=== PATIENT | male | born 1960 | race Two or more races ===

== ENCOUNTER → 2022-03-16 13:53 | Outpatient (BNVA) | payer OTHER, SELFPAY | PROVIDERS: Visit Provider Nurse Practitioner Family | DX: G21.2 Secondary parkinsonism due to other external agents (principal) | CPT/HCPCS: 99212 ==

== ENCOUNTER 2023-03-19 14:05 | Outpatient (AMB) | payer MEDICAID, SELFPAY ==
--- NOTE | 2023-03-19 14:22 | A.OFFVIS_ITS ---
Intake Vital Signs 03/19/23 14:23 Height 5 ft 7 in Weight 187 lb 6 oz BMI 29.3 BP 132/75 Blood Pressure Location Rt brachial Position Sitting Respiration 16 Pulse 97 Pulse Source Pulse Oximeter Pulse Oximetry (%) 98 Oxygen Delivery Method Room Air Intake Visit Reasons: 1 yr follow-up - Confirmed Intake Note: Pt is here for one year follow up for Parkinson's disease. Pt is here with the dry cleaning supervisor of his residential home, Faye Neff who is also his historian. She reports he has been stable. There has been no change. 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 Pt reports he is doing well with benzotropine 0.5 mg BID. He still has moderate oral, sucking movement but it is not botersom. Pt is edentulous, and not using denture. Denies difficulty swallowing food or chocking. Satya drooling or biting tongue He uses cane, No falls reported. Denies light headedness or hallucination. He sleeps well from 8 pm to 7 am. Pt's psychiatrist discontinue hydroxyzine, desmorpressin and buspirone and melatonin, and his behavior and mood is stable. [facility] Medical History (Updated 03/20/22 @ 15:30 by Ayleen Yadav CNP) Diabetes mellitus Sleep disorder Hypothyroidism Anxiety Schizophrenia Paranoid Surgical History S/P nasal surgery Family History Sister Heart attack Social History Alcohol intake: never Patient Tobacco Use Status: Never used Tobacco Review of Systems Const All systems reviewed & are unremarkable except as noted in HPI and below ENT Reports Normal hearing present Neuro Reports Normal hearing present Physical Exam Vital Signs: Last Vital Signs Pulse 97 03/19/23 14:23 Resp 16 03/19/23 14:23 BP 132/75 03/19/23 14:23 Pulse Ox 98 03/19/23 14:23 Oxygen Delivery Method Room Air 03/19/23 14:23 BMI result Body Mass Index 29.3 Const General: cooperative and no acute distress Nutritional Appearance: average body habitus Orientation/consciousness: patient oriented x3 Limitations: ambulation with cane Neck Neck: Yes full ROM and Yes supple Resp Effort & Inspection: normal respiratory effort and able to speak in complete sentences Neuro Other: Mild decreased facial expression and blink. Mild constant oral sucking movment. General: patient oriented x3 and moves all extremities Cranial nerves: Yes Bilaterally intact EOM present, Yes Normal facial strength present, Yes Midline tongue present, Yes Symmetric palate elevation present, Yes Normal hearing present, Yes Ability to bilaterally rotate head present and Yes Ability to bilaterally elevate shoulders present Cognition (Neuro): normal cognition Gait exam (Neuro): Other gait observations present (mild stooped , good stride and decreased bilteral arm swing. 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
[2023-03-19 14:23] VITALS: BP 132/75; PULSE 97; RESP 16; O2SAT 98; BMI 29.3
== END 2023-03-19 14:45 | disposition home or self-care (01) ==
PROVIDERS: Visit Provider Nurse Practitioner Family
DX: G21.2 Secondary parkinsonism due to other external agents (principal)
CPT/HCPCS: 99213

== ENCOUNTER → 2023-03-19 14:05 | Outpatient (BNVA) | payer OTHER, SELFPAY | PROVIDERS: Visit Provider Nurse Practitioner Family | DX: G21.2 Secondary parkinsonism due to other external agents (principal) | CPT/HCPCS: 99212 ==

== ENCOUNTER 2024-10-13 11:34 | Outpatient (AMB) | payer MEDICAID, SELFPAY ==
--- NOTE | 2024-10-13 11:49 | A.OFFVIS_ITS ---
Vital Signs 10/13/24 11:50 Height 5 ft 7 in Weight 196 lb BMI 30.7 BP 124/78 Blood Pressure Location Rt brachial Pulse 91 Pulse Source Pulse Oximeter Pulse Oximetry (%) 98 Oxygen Delivery Method Room Air Intake Visit Reasons: 1 yr f/u appt-Conf Intake Note: Patient presents for following up. patient was last seen 2022 by Sadie Allergies hydroxyzine [From Vistaril] Allergy (Unknown, Verified 10/13/24 11:49) Unknown [facility] Medical History Diabetes mellitus Sleep disorder Hypothyroidism Anxiety Schizophrenia Paranoid Surgical History S/P nasal surgery Family History Sister Heart attack Social History (Reviewed 03/19/23 @ 14:33 by Otilia Bundy [facility]) Alcohol intake: never Patient Tobacco Use Status: Never used Tobacco Coding
[2024-10-13 11:50] VITALS: BP 124/78; PULSE 91; O2SAT 98; BMI 30.7
--- NOTE | 2024-10-13 11:58 | A.OFFVIS_ITS ---
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 It is not clear if patient is still on benztropine- received a note saying that it was stopped by psych provider. He still has moderate oral, sucking movement but it is not bothersome. Pt is edentulous, and not using denture. Denies difficulty swallowing food or chocking. Satya drooling or biting tongue He uses cane, No falls reported. Denies light headedness or hallucination. He sleeps well from 8 pm to 7 am. Pt's psychiatrist discontinue hydroxyzine, desmorpressin and buspirone and melatonin, and his behavior and mood is stable. [facility] Medical History Diabetes mellitus Sleep disorder Hypothyroidism Anxiety Schizophrenia Paranoid Surgical History S/P nasal surgery Family History Sister Heart attack Social History Alcohol intake: never Patient Tobacco Use Status: Never used Tobacco Review of Systems ENT Reports Normal hearing present Neuro Reports Normal hearing present Physical Exam Vital Signs: Last Vital Signs Pulse 91 10/13/24 11:50 BP 124/78 10/13/24 11:50 Pulse Ox 98 10/13/24 11:50 Oxygen Delivery Method Room Air 10/13/24 11:50 BMI result Body Mass Index 30.7 Const General: cooperative and no acute distress Nutritional Appearance: average body habitus Orientation/consciousness: patient oriented x3 Limitations: ambulation with cane Neck Neck: Yes full ROM and Yes supple Resp Effort & Inspection: normal respiratory effort and able to speak in complete sentences Neuro Other: Mild decreased facial expression and blink. Mild constant oral sucking movment. General: patient oriented x3 and moves all extremities Cranial nerves: Yes Bilaterally intact EOM present, Yes Normal facial strength present, Yes Midline tongue present, Yes Symmetric palate elevation present, Yes Normal hearing present, Yes Ability to bilaterally rotate head present and Yes Ability to bilaterally elevate shoulders present Cognition (Neuro): normal cognition Gait exam (Neuro): Other gait observations present (mild stooped , good stride and decreased bilteral arm swing. 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 I will call [facility] to confirm that he is still on Benztropine. 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
--- OUTSIDE RECORDS SUMMARY | 2024-10-13 12:23 | XMS_ITS | Patient Health Record ---
Author Organization [facility] Micki adamson [place] Address [address] [place] [address] Care Team Providers Care Print Journalist Name Role Phone Hal Desir Unavailable [phone] Reason For Referral No Information Medications Medication SIG (Take, Route, Frequency, Duration) Notes Start Date End Date Status Multivitamin Active Capsaicin cream Active Benztropine Mesylate 0.5 MG 1 tablet Orally twice a day Active Mirtazapine 30 MG 1 tablet at bedtime Orally Once a day Active Levothyroxine Sodium 75 MCG 1 tablet in the morning on an empty stomach Orally Once a day Active Melatonin Active Atorvastatin Calcium 40 MG 1 tablet Orally Once a day Active traZODone HCl 50 MG 1 tablet at bedtime as needed Orally Once a day Active clonazePAM 1.5mg twice a day Active metFORMIN HCl 500 MG 1 tablet with a ming l Orally twice a day Active Losartan Potassium 25 MG 1 tablet Orally Once a day Active Social History Tobacco Use: Social History [...] Negative Encounters Encounter Location Date Provider Diagnosis [facility] [address] [place] [address] 03/20/2024 Hal Desir [facility] [address] [place] [address] 07/07/2024 Hal Thang Plan Of Treatment No Information Insurance Providers Payer Name Payer Address Payer Phone Subscriber Number Group Number Insured Name Patient Relationship to Insured Coverage Start Date Coverage End Date [facility] [address] [place] [phone] [id number] Favian Gorman Self - patient is the insured Medical (General) History Medical History History ICD Code Anxiety Depression Diabetic High Blood Pressure Parkinsons disease Psychiatric disorder
--- OUTSIDE RECORDS SUMMARY | 2024-10-13 12:23 | XMS_ITS | Clinical Summary ---
Author Organization [address] Address [address] [place] [address] Phone Care Team Providers Care Toy Parts Former Supervisor Name Role Phone Physician, Pcp Unknown Primary Care Provider Rosa Maria vailable Social History Tobacco Use Types Packs/Day Years Used Date Smoking Tobacco: Never Assessed Sex and Gender Information Value Date Recorded Sex Assigned at Not on file Legal Sex Male 12:24 AM EST Gender Identity Not on file Sexual Orientation Not on file Plan of Treatment Health Maintenance Due Date Last Done Comments Diabetes: Annual GFR (Glomerular Filtration Rate) 1960 Diabetes: Annual Foot Exam 08/30/1971 Diabetes: Annual Retina Eye Exam 08/30/1971 Zoster Vaccines (1 of 2) 08/30/2011 Pneumococcal Vaccine: 50+ Years (2 of 2 - PCV) 09/24/2019 09/23/2018 Cholesterol Screening (Lipid Panel) 05/07/2022 Colorectal Cancer Screening: Colonoscopy 05/07/2022 Depression Screening 05/07/2022 HIV Screening 05/07/2022 Hepatitis C Screening 05/07/2022 Social Influencers of Health Screening 05/07/2022 COVID-19 Vaccine ( season) 2024 06/22/2022, 04/01/2021, 08/02/2020, Additional history exists Diabetes: Annual Urine Albumin-Creatinine Ratio (uACR) 04/14/2024 Diabetes: Blood Sugar Control Test (HGBA1C) 04/14/2024 Influenza Vaccine (Season Ended) 2025 09/22/2021, 03/19/2018, 03/01/2017, Additional history exists DTaP,Tdap,and Td Vaccines (4 - Td or Tdap) 01/12/2031 01/12/2021, 10/25/2017, 08/30/2011 RSV Immunization Adult Patients (1 - 1-dose 75+ series) 2036 Pneumococcal Vaccine: Pediatrics (0 to 5 Years) and At-Risk Patients (6 to 64 Years) Aged Out 09/23/2018 No longer eligible based on patient's age to complete this topic HIB Vaccines Aged Out No longer eligi ble based on patient's age to complete this topic HPV Vaccines Aged Out No longer eligi ble based on patient's age to complete this topic Hepatitis A Vaccines Aged Out No long er eligible based on patient's age to complete this topic Hepatitis B Vaccines Aged Out No long er eligible based on patient's age to complete this topic IPV Vaccines Aged Out No longer eligi ble based on patient's age to complete this topic MMR Vaccines Aged Out No longer eligi ble based on patient's age to complete this topic Meningococcal ACWY Vaccine Aged Out N o longer eligible based on patient's age to complete this topic Meningococcal B Vaccine Aged Out No l onger eligible based on patient's age to complete this topic RSV Immunization Patients Under 20 months Aged Out No longer eligible based on patient's age to complete this topic Varicella Vaccines Aged Out No longer eligible based on patient's age to complete this topic Procedures Procedure Name Priority Date/Time Associated Diagnosis Comments CBC WITH AUTO DIFFERENTIAL Routine 09/19/2024 10:36 AM EDT Drug therapy CBC AND DIFFERENTIAL Routine 09/19/2024 10:36 AM EDT Drug therapy CBC WITH AUTO DIFFERENTIAL Routine 08/19/2024 10:40 AM EDT Drug therapy CBC AND DIFFERENTIAL Routine 08/19/2024 10:40 AM EDT Drug therapy from Last 3 Months Results * (ABNORMAL) CBC auto differential (09/19/2024 10:36 AM EDT) Only the most recent of2 resultswithin the time period is included. WBC 8.2 4.8 - 10.8 K/[facility] LAB HEMETOLOGY METHOD 09/19/2024 1:51 PM EDT [facility] RBC 4.90 4.50 - 5.50 M/[facility] LAB HEMETOLOGY METHOD 09/19/2024 1:51 PM [facility] Hemoglobin 14.0 13.5 - 17.5 g/dL LAB HEMETOLOGY METHOD 09/19/2024 1:51 PM [facility] Hematocrit 43.7 42.0 - 54.0 % LAB HEMETOLOGY METHOD 09/19/2024 1:51 PM [facility] MCV 89.0 79.0 - 98.0 FL LAB HEMETOLOGY METHOD 09/19/2024 1:51 PM [facility] MCH 28.5 27.0 - 32.0 pcg LAB HEMETOLOGY METHOD 09/19/2024 1:51 PM [facility] MCHC 32.0 32.0 - 37.0 g/dL LAB HEMETOLOGY METHOD 09/19/2024 1:51 PM [facility] RDW 13.5 11.0 - 15.0 % LAB HEMETOLOGY METHOD 09/19/2024 1:51 PM [facility] Platelets 191 130 - 400 K/mcL LAB HEMETOLOGY METHOD 09/19/2024 1:51 PM [facility] MPV 12.3(H) 7.0 - 11.0 FL LAB HEMETOLOGY METHOD 09/19/2024 1:51 PM [facility] NRBC 0.0 <1.0 % LAB HEMETOLOGY METHOD 09/19/2024 1:51 PM [facility] NRBC Absolute 0.00 <0.10 K/mcL LAB HEMETOLOGY METHOD 09/19/2024 1:51 PM [facility] Neutrophils Relative 55.6 % LAB HEMETOLOGY METHOD 09/19/2024 1:51 PM [facility] Lymphocytes Relative 33.4 % LAB HEMETOLOGY METHOD 09/19/2024 1:51 PM [facility] Monocytes Relative 7.6 % LAB HEMETOLOGY METHOD 09/19/2024 1:51 PM EDT [facility] Eosinophils Relative 2.1 % LAB HEMETOLOGY METHOD 09/19/2024 1:51 PM EDT [facility] Basophils Relative 0.7 % LAB HEMETOLOGY METHOD 09/19/2024 1:51 PM EDT [facility] Immature Granulocytes Relative 0.6 % LAB HEMETOLOGY METHOD 09/19/2024 1:51 PM EDT [facility] Neutrophils Absolute 4.56 1.50 - 7.00 K/mcL LAB HEMETOLOGY METHOD 09/19/2024 1:51 PM EDT [facility] Lymphocytes Absolute 2.74 1.00 - 5.00 K/mcL LAB HEMETOLOGY METHOD 09/19/2024 1:51 PM EDT [facility] Monocytes Absolute 0.62 0.20 - 1.00 K/mcL LAB HEMETOLOGY METHOD 09/19/2024 1:51 PM EDT [facility] Eosinophils Absolute 0.17 0.00 - 0.50 K/mcL LAB HEMETOLOGY METHOD 09/19/2024 1:51 PM EDT [facility] Basophils Absolute 0.06 0.00 - 0.20 K/mcL LAB HEMETOLOGY METHOD 09/19/2024 1:51 PM EDT [facility] Immature Granulocytes Absolute 0.05(H) 0.00 - 0.03 K/mcL LAB HEMETOLOGY METHOD 09/19/2024 1:51 PM EDT [facility] Blood Venous blood specimen / Unknown Venipuncture / Unknown 09/19/2024 10:36 AM EDT 09/19/2024 1:42 PM EDT us Manpreet Darling CYTOGENETICIST LAB BLOOD ORDERABLES Final Result [facility] [address] [place] [address], from Last 3 Months Insurance [facility] MEDICAID ADVANTAGE Advance Directives Documents on File Type Date Recorded 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 Health Care Decision (hx) 12/18/2021 AD CERON DIRECTIVE Health Care Decision (hx) 12/18/2021 AD CERON DIRECTIVE Health Care Decision (hx) 12/18/2021 AD CERON DIRECTIVE Health Care Decision (hx) 12/18/2021 AD CERON DIRECTIVE Health Care Decision (hx) 12/18/2021 AD CERON DIRECTIVE Health Care Decision (hx) 12/18/2021 AD CERON DIRECTIVE Health Care Decision (hx) 12/18/2021 AD CERON DIRECTIVE Health Care Decision (hx) 12/18/2021 AD CERON DIRECTIVE Health Care Decision (hx) 12/18/2021 AD CERON DIRECTIVE Health Care Decision (hx) 12/18/2021 AD CERON DIRECTIVE Health Care Decision (hx) 12/18/2021 AD CERON DIRECTIVE Health Care Decision (hx) 12/18/2021 AD CERON DIRECTIVE Health Care Decision (hx) 12/18/2021 AD CERON DIRECTIVE Health Care Decision (hx) 12/18/2021 AD CERON DIRECTIVE Health Care Decision (hx) 12/18/2021 AD CERON DIRECTIVE Health Care Decision (hx) 12/18/2021 AD CERON DIRECTIVE Health Care Decision (hx) 08/17/2016 AD CERON DIRECTIVE Health Care Decision (hx) 08/17/2016 AD CERON DIRECTIVE Health Care Decision (hx) 08/17/2016 AD CERON DIRECTIVE Health Care Decision (hx) 08/17/2016 AD CERON DIRECTIVE Health Care Decision (hx) 08/17/2016 AD CERON DIRECTIVE Health Care Decision (hx) 08/17/2016 AD CERON DIRECTIVE Health Care Decision (hx) 08/17/2016 AD CERON DIRECTIVE Health Care Decision (hx) 08/17/2016 AD CERON DIRECTIVE Health Care Decision (hx) 08/17/2016 AD CERON DIRECTIVE Health Care Decision (hx) 08/17/2016 AD CERON DIRECTIVE Health Care Decision (hx) 08/17/2016 AD CERON DIRECTIVE Care Teams Toy Parts Former Supervisor Relationship Specialty Start Date End Date Physician, Pcp Unknown PCP - General 04/14/24
--- OUTSIDE RECORDS SUMMARY | 2024-10-13 12:23 | XMS_ITS ---
Author Organization [facility] Micki adamson [place] Address [address] [place] [address] Care Team Providers Care Audiovisual Technician Name Role Phone Hal Desir Unavailable [phone] Medications Medication SIG (Take, Route, Frequency, Duration) [...] Negative Encounters Encounter Location Date Provider Diagnosis [facility] [place] [address] [address] 07/07/2024 Hal Desir Plan Of Treatment No Information Progress Notes * Prabhjot MCGHEEOB:1960 ( 64 yo F)Acc No.[id number]:07/07/2024 Progress Notes Patient:Favian URIARTE Provider:?Hal Desir DPM :1960???Age:63 Y???Sex:Female D ate:07/07/2024 Address:[address] [place] [address] [id number] Subjective: * Chief Complaints: * ??? * ROS:?General/Constitutional:?Nausea?denies.?Vomiting?denies.?Hunger Thirst?denies.?Loss appetite?denies.?Chills?denies.?Fatigue?denies.?Fever?denies.?Night Sweats?denies.?Unexplained weight loss?denies.?Unexplained weight gain?denies.?HEENTM:?Dentures?denies.?Dizziness?denies.?Glasses/contacts?denies.?Retinopathy?de nies.?Blurred/double vision?denies.?TMJ?denies.?Discharge/drainage?denies.?Implants?denies.?Sore throat?denies.?Dental implants?denies.?Hard of hearing ?denies.?Difficulty chewing/swallowing/speaking?denies.?Nose bleeds?denies.?Sore mouth?denies.?Respiratory:?On Oxygen?denies.?Pneumonia/pleurisy?denies.?Bronchitis?denies.?Emphysema?denies.?C oughing?denies.?Cough blood?denies.?Shortness of breath?denies.?Wheezing?denies.?Cardiovascular:?Pacemaker?denies.?MVP?denies.?WPW?denies.?CHF?denies.?Heart attack?denies.?Septal defect?denies.?Rapid beat?denies.?Chest pain ?denies.?Atrial Fib.?denies.?Murmur/Palpitations?denies.?Gastrointestinal:?Hemorrhoids?denies.?Stomach/Abdominal pain?denies.?Dark blood stool?denies.?Irritable bowel ?denies.?Constipation?denies.?Diarrhea?denies.?Hematology:?Swelling?denies.?Clots?denies.?Varicose Veins?denies.?Bruising?denies.?Bleeding problem?denies.?Genitourinary:?Blood urine?denies.?Frequent/Painfu/urination/bladder control?denies.?Kidney stones?denies.?Infection (UTI)?denies.?Nephropathy?denies.?sex trans dis (STD)?denies.?Prostate?denies.?Musculoskeletal:?Hammertoes?denies.?Bunions?denies.?Back Pain?denies.?Muscle Cramps/ Resting?denies.?Muscle cramps / walking?denies.?Generalized aches and pains?denies.?Weakness?denies.?Integ.:?Bynum?denies.?Scars?denies.?Corns/calluses?denies.?Ingrown nails?denies.?Painful nails?denies.?Open Sores?denies.?Rashes?denies.?Neurologic:?Difficulty sleeping?denies.?Brain disorder?denies.?Numbness?denies.?Balance trouble?denies.?Confusion?denies.?Fainting/blackouts?denies.?Tingling?denies.?Tr emors?denies.? * Medical History:?Anxiety, De pression, Diabetic, High Blood Pressure, Parkinsons disease, Psychiatric disorder. * Family History:?Mother: dece ased.?Father: .? * Social History:?Tobacco Use:?Tobacco use other than smoking?Are you an other tobacco user??No ?Tobacco Control (Standard)?Tobacco use:?Nonsmoker ?Additional Findings: Tobacco non-user?Current nonsmoker ???Drugs/Alcohol:?Drugs?Have you used drugs other than those for medical reasons in the past 12 months??No ???Miscellaneous:?Caffeine: yes. ?Marital status: Single. ???Drug/Alcohol:?AUDIT-C (Standard)?Did you have a drink containing alcohol in the past year??No ?Points?0 ?Interpretation?Negative * Medications:?Taking Capsaici n , Notes to Pharmacist: cream, Taking Benztropine [...] a day , Taking Multivitamin Objective: * Vitals:? Assessment: Plan: * Treatment: * Images: * The named appointment provid er may or may not be the originator of this progress note, and it is not deemed complete until electronically signed by the appointment provider. Sign off status: Pending * Provider:?Hal Desir DPM Date:?2024 Generated for Bernardino lynn/Bhavesh/Jr on:?10/13/2024 12:23 PM EDT
--- OUTSIDE RECORDS SUMMARY | 2024-10-13 12:23 | XMS_ITS | Clinical Summary ---
Author Organization [facility] Address [address] [place] [address] Care Team Providers Care Machining And Assembly Supervisor Name Role Phone Unavailable Primary Care Provider Unavailabl e Social History Tobacco Use Types Packs/Day Years Used Date Smoking Tobacco: Never Assessed Sex and Gender Information Value Date Recorded Sex Assigned at Not on file Legal Sex Male 10:47 AM EST Gender Identity Not on file Sexual Orientation Not on file Plan of Treatment Health Maintenance Due Date Last Done Comments Colorectal Cancer Screening: Annual FOBT 2010 Colorectal Cancer Screening: Colonoscopy 2010 Colorectal Cancer Screening: Sigmoidoscopy 2010 Pneumococcal Vaccine: 50+ Ye ars (2 of 2 - PCV) 09/24/2019 09/23/2018 Diabetes: Hemoglobin A1C 06/22/2022 Diabetes: Ophthalmology Exam 06/22/2022 Diabetes: Pedal Pulse Checked 06/22/2022 Diabetes: Sensory Foot Exam 06/22/2022 Diabetes: Visual Foot Exam 06/22/2022 Influenza Vaccine (Season Ended) 2025 Pneumococcal Vaccine: Peds ( 0 to 5 Years) and At-Risk Patients (6 to 49 Years) Discontinued 09/23/2018 Hepatitis B Vaccine Aged Out No longe r eligible based on patient's age to complete this topic [place] [address]
--- OUTSIDE RECORDS SUMMARY | 2024-10-13 12:23 | XMS_ITS ---
Author Organization [facility] Address [address] [place] [address] Care Team Providers Care Maintainer Operator Name Role Phone Hal Desir Unavailable [phone] Encounters Encounter Location Date [facility] [address] [place] [phone] 07/17/2024 Hal eDsir Plan Of Treatment No Information Progress Notes * Prabhjot MCGHEEOB:1960 ( 64 yo F)Acc No.[id number]:07/17/2024 Progress Notes Patient:?Favian MCGHEE Provider:?Hal Desir DPM :1960???Age:63 Y???Sex:Female D ate:07/17/2024 Address:[address] [place], [place] [id number] Subjective: * Chief Complaints: * ??? * Medical History:? Objective: * Vitals:? Assessment: Plan: * Treatment: * Images: * The named appointment provid er may or may not be the originator of this progress note, and it is not deemed complete until electronically signed by the appointment provider. Sign off status: Pending * Provider:Javan Desir DPM Date:?2024 Generated for Bernardino lynn/Bhavesh/eTransmitting on:?10/13/2024 12:23 PM EDT
--- OUTSIDE RECORDS SUMMARY | 2024-10-13 12:23 | XMS_ITS ---
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 Generated for Bernardino lynn/Bhavesh/eTransmitting on:?10/13/2024 12:23 PM EDT
== END 2024-10-13 12:13 | disposition home or self-care (01) ==
LOC: HO.HSMS 11:35
PROVIDERS: Visit Provider Psychiatry & Neurology Neurology
DX: G21.2 Secondary parkinsonism due to other external agents (principal)
CPT/HCPCS: 99214

== ENCOUNTER → 2024-10-13 11:34 | Outpatient (BNVA) | payer OTHER, SELFPAY | PROVIDERS: Visit Provider Psychiatry & Neurology Neurology | DX: G21.2 Secondary parkinsonism due to other external agents (principal) | CPT/HCPCS: 99212 ==

== ENCOUNTER 2025-04-16 12:52 | Outpatient (AMB) | payer MEDICAID, SELFPAY ==
--- OUTSIDE RECORDS SUMMARY | 2024-07-07 04:00 | XMS_ITS ---
Author Organization [facility] Micki adamson [place] Address [address] [place] [address] Care Team Providers Care Auditor Appraiser Name Role Phone Hal Desir Unavailable [phone] Medications Medication SIG (Take, Route, Frequency, Duration) Notes Start Date End Date Status Multivitamin Active Levothyroxine Sodium 75 MCG 1 tablet in the morning on an empty stomach Orally Once a day Active Melatonin Active Atorvastatin Calcium 40 MG 1 tablet Orally Once a day Active Losartan Potassium 25 MG 1 tablet Orally Once a day Active Benztropine Mesylate 0.5 MG 1 tablet Orally twice a day Active Mirtazapine 30 MG 1 tablet at bedtime Orally Once a day Active traZODone HCl 50 MG 1 tablet at bedtime as needed Orally Once a day Active clonazePAM 1.5mg twice a day Active metFORMIN HCl 500 MG 1 tablet with a ming l Orally twice a day Active Capsaicin cream Active Social History Tobacco Use: Social History Observation Description Date Details (start date - stop date) Never Smoker NA - NA Tobacco use other than smoking: Question Answer Notes Are you an other tobacco user? No Tobacco Control (Standard) Question Answer Notes Tobacco use: Nonsmoker Additional Findings: Tobacco non-user Current no nsmoker AUDIT-C (Standard) Question Answer Notes Did you have a drink containing alcohol in the p ast year? No Points 0 Interpretation Negative Encounters Encounter Location Date Provider Diagnosis [facility] [place] [address] [address] 07/07/2024 Hal Desir Plan Of Treatment No Information Progress Notes * Prabhjot MCGHEEOB:1960 ( 64 yo F)Acc No.[id number]:07/07/2024 Progress Notes Patient: Favian HAIR Provider: Israel Desir DPM :1960 A ge:63 Y S ex:Female Date:07/07/2024 Address:[address] [place] [address] [place], [id number] Subjective: * Chief Complaints: * * ROS: G eneral/Constitutional: Nausea d enies. V omiting d enies. H stephanie Thirst d enies. L oss appetite d enies. C hills d enies. F atigue d enies.?Fever d enies. N ight Sweats d enies. U nexplained weight loss d enies. U nexplained weight gain d enies. H EENTM: Dentures d enies. D izziness d enies. G lasses/contacts d enies. R etinopathy d enies. B lurred/double vision d enies. T MJ?denies. D ischarge/drainage d enies. I mplants d enies. S ore throat d enies. D ental implants d enies. H soraida of hearing d enies. D ifficulty chewing/swallowing/speaking d enies. N ose bleeds d enies. S ore mouth d enies. ? R espiratory: On Oxygen d enies. P neumonia/pleurisy d enies.?Bronchitis d enies. E mphysema d enies. C oughing d enies. C ough blood?denies. S hortness of breath d enies. W heezing d enies. C ardiovascular: Pacemaker d enies. M VOLUNTEER SERVICES DIRECTOR d enies. W PW d enies. C HF d enies. H eart attack d enies. S eptal defect d enies. R apid beat d enies. C hest pain d enies. A trial Fib. d enies. M urmur/Palpitations d enies. G astrointestinal: Hemorrhoids d enies. S tomach/Abdominal pain d enies. D ark blood stool d enies. I rritable bowel d enies. C onstipation d enies. D iarrhea d enies. H ematology: Swelling d enies. C lots d enies. V aricose Veins d enies. B ruising d enies. B leeding problem d enies. G enitourinary: Blood urine d enies. F requent/Painfu/urination/bladder control d enies. K idney stones d enies. I nfection (UTI) d enies. N ephropathy d enies. s ex trans dis (STD) d enies. P rostate d enies. M usculoskeletal: Hammertoes d enies. B unions d enies. B ack Pain d enies. M uscle Cramps/ Resting d enies. M uscle cramps / walking d enies.?Generalized aches and pains d enies. W eakness d enies. I nteg.: Bynum d enies. S cars d enies. C orns/calluses?denies. I ngrown nails d enies. P ainful nails d enies. O pen Sores d enies. R ashes d enies. N eurologic: Difficulty sleeping d enies. B rain disorder d enies. N umbness d enies. B alance trouble d enies. C onfusion d enies. F ainting/blackouts d enies. T ingling d enies. T remors d enies. * Medical History: A nxiety, Depression, Diabetic, High Blood Pressure, Parkinsons disease, Psychiatric disorder. * Family History: M other: . F ather: . * Social History: T obacco Use: T obacco use other than smoking A re you an other tobacco user? N o Tobacco Control (Standard) T obacco use: N onsmoker A dditional Findings: Tobacco non-user C urrent nonsmoker D rugs/Alcohol: D rugs H ave you used drugs other than those for medical reasons in the past 12 months? N o M iscellaneous: C affeine: yes. Marital status: Single. D rug/Alcohol: A EVELIN-C (Standard) D id you have a drink containing alcohol in the past year? N o P oints 0 I nterpretation N egative * Medications: T aking Capsaicin , Notes to Pharmacist: cream, Taking Benztropine Mesylate 0.5 MG Tablet 1 tablet Orally twice a day , Taking Mirtazapine 30 MG Tablet 1 tablet at bedtime Orally Once a day , Taking traZODone HCl 50 MG Tablet 1 tablet at bedtime as needed Orally Once a day , Taking clonazePAM , Notes to Pharmacist: 1.5mg twice a day, Taking metFORMIN HCl 500 MG Tablet 1 tablet with a meal Orally twice a day , Taking Losartan Potassium 25 MG Tablet 1 tablet Orally Once a day , Taking Levothyroxine Sodium 75 MCG Tablet 1 tablet in the morning on an empty stomach Orally Once a day , Taking Melatonin , Taking Atorvastatin Calcium 40 MG Tablet 1 tablet Orally Once a day , Taking Multivitamin Objective: * Vitals: Assessment: Plan: * Treatment: * Images: * The named appointment provid er may or may not be the originator of this progress note, and it is not deemed complete until electronically signed by the appointment provider. Sign off status: Pending * Provider: Israel Desir DPM Date: 0 07/07/2024 Generated for Bernardino lynn/Bhavesh/Jr on: 06/16/2024 04:00 PM EST
--- OUTSIDE RECORDS SUMMARY | 2024-07-17 04:00 | XMS_ITS ---
Author Organization [facility] Address [address] [place] [address] Care Team Providers Care Marine Pipe Welder Name Role Phone Hal Desir Unavailable [phone] Encounters Encounter Location Date [facility] [address] [place] [phone] 07/17/2024 Hal Desir Plan Of Treatment No Information Progress Notes * Prabhjot MCGHEEOB:1960 ( 64 yo F)Acc No.[id number]:07/17/2024 Progress Notes Patient: Favian HAIR Provider: Israel Desir DPM :1960 A ge:63 Y S ex:Female Date:07/17/2024 Address:[address] [place], [place] [id number] Subjective: * Chief Complaints: * * Medical History: Objective: * Vitals: Assessment: Plan: * Treatment: * Images: * The named appointment provid er may or may not be the originator of this progress note, and it is not deemed complete until electronically signed by the appointment provider. Sign off status: Pending * Provider: Israel Desir DPM Date: 0 07/17/2024 Generated for Bernardino lynn/Bhavesh/Jr on: 06/16/2024 04:00 PM EST
[2025-04-16 12:54] VITALS: BP 122/78; PULSE 98; O2SAT 96; BMI 29.6
--- NOTE | 2025-04-16 12:54 | MHC.OFFVIS ---
Vital Signs 04/16/25 12:54 Height 5 ft 7 in Weight 189 lb BMI 29.6 BP 122/78 Blood Pressure Location Lt brachial Position Sitting Pulse 98 Pulse Source Pulse Oximeter Pulse Oximetry (%) 96 Oxygen Delivery Method Room Air Intake Visit Reasons: 6m follow up (COMF.) Intake Note: Patient presents follow up Parkinsons. 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 Benztropine 07/2024 received a note saying that it was stopped by psych provider, he doesn't present like Parkinson clinically. Bernarda is his hiv/aids care nurse is with him 5 days a week through [facility]. He lives in the [facility], takes his meds on time, goes to day program [facility] Day program M-F 8am to 3pm. He goes to bed at 6pm sleeps at 9pm gets up at 2am for the bathroom, denies snoring, gasping for air, morning headaches. Has Breakfast, lunch, and plays Bingo, listens to music, has friends, socializes. He has moderate oral, sucking movement but it is not bothersome. Upper extremity tremors bilaterally, not bothersome. Pt is edentulous, and not using dentures. Denies difficulty swallowing food or chocking. Denies drooling or biting tongue. He uses a cane, denies falls. Denies light headedness, hallucinations, parasomnias, thrashing, flailing behaviors. Memory is stable. Pt's psychiatrist discontinue hydroxyzine, desmopressin, buspirone, melatonin, and his behavior/ mood is stable. He continues to take the following meds: clonazepam 1.5mg po bid clozapine 50mg po bid trazadone sleeps all night mirazapine 30mg po for anxiety PFSH Medical History Diabetes mellitus Sleep disorder Hypothyroidism Anxiety Schizophrenia Paranoid Surgical History S/P nasal surgery Family History Sister Heart attack Social History Alcohol intake: never Patient Tobacco Use Status: Never used Tobacco Review of Systems ENT Reports Normal hearing present Neuro Reports Normal hearing present Physical Exam Vital Signs: Last Vital Signs Pulse 98 04/16/25 12:54 BP 122/78 04/16/25 12:54 Pulse Ox 96 04/16/25 12:54 Oxygen Delivery Method Room Air 04/16/25 12:54 BMI result Body Mass Index 29.6 Const General: cooperative and no acute distress Nutritional Appearance: average body habitus Orientation/consciousness: patient oriented x3 Limitations: ambulation with cane Neck Neck: Yes full ROM and Yes supple Resp Effort & Inspection: normal respiratory effort and able to speak in complete sentences Neuro Other: Mild decreased facial expression and blink. Mild constant oral sucking movment. Mild Bilateral upper ext tremors. General: patient oriented x3 and moves all extremities Cranial nerves: Yes Bilaterally intact EOM present, Yes Normal facial strength present, Yes Midline tongue present, Yes Symmetric palate elevation present, Yes Normal hearing present, Yes Ability to bilaterally rotate head present and Yes Ability to bilaterally elevate shoulders present Cognition (Neuro): normal cognition Gait exam (Neuro): Other gait observations present (mild stooped , good stride and decreased bilteral arm swing. 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 meds reviewed with [facility] health scheduler/ manager of applications development/ geotechnical engineering technician f/u in 3 months Patient Instructions: Sleep Hygiene provided: set a scheduled bedtime and wake time to help regulate the circadian rhythm and balance the release of pituitary hormones. Sleep in a dark room, temperatures below 68 degrees, and no devices n bed. Limit caffeinated products 6 hours prior to bed, and limit fluids 2-4 hours prior to bed. Gentle night yoga, diffusing essential oils, and playing soft music can be relaxing. 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
--- OUTSIDE RECORDS SUMMARY | 2025-04-16 16:00 | XMS_ITS | Patient Health Record ---
Author Organization [facility] Micki adamson [place] Address [address] [place] [address] Care Team Providers Care Surgery Scheduler Name Role Phone Hal Desir Unavailable [phone] Reason For Referral No Information Medications Medication [...] Negative Encounters Encounter Location Date [facility] [address] [place] [address] 07/07/2024 Hal Desir Plan Of Treatment No Information Insurance Providers Payer Name Payer Address Payer Phone Subscriber Number Group Number Insured Name Patient Relationship to Insured Coverage Start Date Coverage End Date [facility] [employer] Claims [address] [place] [id number] Favian Gorman Self - patient is the insured Medical (General) History Medical History History ICD Code Anxiety Depression Diabetic High Blood Pressure Parkinsons disease Psychiatric disorder
--- OUTSIDE RECORDS SUMMARY | 2025-04-16 16:00 | XMS_ITS | Clinical Summary ---
Author Organization [address] Address [address] [place] [address] Phone Care Team Providers Care Sewing Machine Repairer Name Role Phone Physician, Pcp Unknown Primary [...] Date Last Done Comments Colorectal Cancer Screening: Colonoscopy 1960 Diabetes: Annual GFR (Glomerular Filtration Rate) 1960 Diabetes: Annual Foot Exam 08/30/1971 Diabetes: Annual Retina Eye Exam 08/30/1971 Zoster Vaccines (1 of 2) 08/30/2011 Pneumococcal Vaccine: 50+ Years (2 of 2 - PCV) 09/24/2019 09/23/2018 Cholesterol Screening (Lipid Panel) 05/07/2022 HIV Screening 05/07/2022 Hepatitis C Screening 05/07/2022 Social Influencers of Health Screening 05/07/2022 Diabetes: Annual Urine Albumin-Creatinine Ratio (uACR) 04/14/2024 Diabetes: Blood Sugar Control Test (HGBA1C) 04/14/2024 Depression Screening 06/04/2024 COVID-19 Vaccine ( season) 2025 06/22/2022, 04/01/2021, 08/02/2020, Additional history exists Influenza Vaccine (#1) 2025 2, 03/19/2018, 03/01/2017, Additional history exists DTaP,Tdap,and Td Vaccines (4 - Td or Tdap) 01/12/2031 01/12/2021, 10/25/2017, 08/30/2011 RSV Immunization Adult Patients (1 - 1-dose 75+ series) 2036 HIB Vaccines Aged Out No longer eligi [...] patient's age to complete this topic Insurance [employer] [employer] Advance Directives Documents on File Type Date Recorded Patient Telephone Answerer Expl anation Health Care Decision (hx) 12/18/2021 [...] (hx) 08/17/2016 AD CERON DIRECTIVE Care Teams Sewing Machine Repairer Relationship Specialty Start Date End Date Physician, Pcp Unknown PCP - General 04/14/24
--- OUTSIDE RECORDS SUMMARY | 2025-04-16 16:01 | XMS_ITS | Clinical Summary ---
Author Organization [facility] Address [address] [place] [address] Care Team Providers Care Lamp Shade Maker Name Role Phone Unavailable Primary Care Provider [...] Diabetes: Visual Foot Exam 06/22/2022 Influenza Vaccine (#1) 2025 Pneumococcal Vaccine: Peds ( 0 to 5 Years) and At-Risk Patients (6 to 49 Years) Discontinued 09/23/2018 Hepatitis B Vaccine Aged Out No longe r eligible based on patient's age to complete this topic [place] [address]
== END 2025-04-16 13:34 | disposition home or self-care (01) ==
LOC: HO.HSMS 12:53
PROVIDERS: Visit Provider Physician Assistant Medical
DX: R68.89 Other general symptoms and signs (principal); G47.19 Other hypersomnia; G21.2 Secondary parkinsonism due to other external agents
CPT/HCPCS: 99204

== ENCOUNTER → 2025-04-16 12:52 | Outpatient (BNVA) | payer OTHER, SELFPAY | PROVIDERS: Visit Provider Physician Assistant Medical | DX: G21.2 Secondary parkinsonism due to other external agents (principal); G47.19 Other hypersomnia | CPT/HCPCS: 99212 ==